=== PATIENT | female | born 1955 | race Caucasian/White ===

== ENCOUNTER 2024-01-18 13:23 | Emergency (ER) | payer MEDICARE, SELFPAY ==
[2024-01-18 13:25] VITALS: BP 161/73; PULSE 59; RESP 18; TEMP 36.4; O2SAT 100; BMI 26.9
--- NOTE | 2024-01-18 13:43 | EX.ED.UPPERE ---
HPI History of Present Illness Chief Complaint: Upper Extremity Injury Informant: patient Narrative Narrative: 68-year-old [id number] female states she tripped and fell 3 weeks ago injuring her left wrist; [place] she lost her footing while walking on the rocks falling onto left outstretched hand. She felt an acute zinger in the left wrist area. She was seen in urgent care and had x-rays that she states were negative. This is the first time she has seen somebody since then because she is having persistent pain and weakness in the left thumb. She states it is not numb, but it will not work and she is not limited by pain when it comes to moving it. She states she does still have wrist pain when she moves it but at rest it is not hurting. No other pain or injuries. No other areas or digits that will not work right. PFSH PFSH Allergy/AdvReac Type Severity Reaction Status Date / Time morphine Allergy Mild Other Verified 01/18/24 13:24 Social History Smoking Status: Unknown if ever smoked ROS ROS ED Constitutional Constitutional ED: Denies chills or fever(s) Musculoskeletal Musculoskeletal: Reports extremity pain; Denies neck pain Integumentary Denies Abrasions, rash or wounds Neurologic Neurologic: Reports weakness; Denies headache(s) or paresthesias EXAM Physical Exam Const Vital Signs: 01/18/24 13:25 Temperature 97.6 F L Temperature Source Temporal Pulse Rate 59 L Respiratory Rate 18 Blood Pressure 161/73 H Blood Pressure Mean 102 Pulse Ox 100 Oxygen Delivery Method Room Air Positive well nourished and well developed General Appearance ED: well developed and NAD Neck full ROM and supple Back/Spine normal ROM and normal to inspection Extremity Extremity Narrative: There is some swelling and bruising to the volar aspect of the left wrist. She has limited range of motion of the wrist due to pain. The distal radius and ulna are nontender, there is no other bony tenderness including the carpus and the metacarpals in the snuffbox. She has no pain with axial loading of the thumb. She is not able to move the thumb. Neuro oriented x3, no focal motor deficits and no sensory deficits noted Neuro Narrative: Not able to move the left thumb except for just barely able to lift it up. She cannot flex at the IPJ. There is no sign of injury to the thumb and it is nontender. She has normal sensation in the rest of her motor and sensory exam to the other digits is normal. Sensorium / Orientation: alert Psych mental status grossly normal and thought process normal Skin no wounds Rashes: no rashes MDM MDM MDM Narrative Medical decision making narrative: Three-view x-ray series of the left wrist on interpretation shows a nondisplaced distal radius metaphyseal fracture. I am not sure why she cannot move her thumb. She seems to think she is doing everything she can to move it and I will barely go. It is possible that the swelling is in the area of the digital nerves and causing a neuropraxia. I placed her in a splint and referred her to orthopedics. It would be unlikely that she lacerated the nerve especially since this was more of a delayed onset problem. For orthopedics patient requesting referral to [facility] local practice. Procedures Upper Extremity Splints Upper Extremity Splint: Orthoglass and - (Anterior posterior short arm wrist splint with thumb spica; neurovascularly intact distally afterwards.) Splint Fabrication: Fabricated Location: Left Discharge Plan Triage Chief Complaint: Upper Extremity Injury ED Provider: Clyde Ty Dx/Rx/DC Orders Clinical Impression: Closed traumatic nondisplaced fracture of distal end of left radius Instructions: ED Colles Fracture No Reduction ..., ED Splint Care, Fiberglass Stand Alone Forms: [facility] Referral Primary Care Provider: Deandre Villa Referrals: Clyde Banerjee MD [Non-Staff] - As soon as possible Deandre Villa MD [Primary Care Provider] - Print Language: Hungarian Disposition Disposition: Home, Self Care
--- NOTE | 2024-01-18 14:35 | RAD_ITS ---
STUDY: X-RAY - LEFT WRIST REASON FOR EXAM: Female, 68 years old. Injury TECHNIQUE: 3 view(s) of the wrist were obtained. COMPARISON: None. FINDINGS: There is a mildly impacted fracture of the distal radius with overlying soft tissue swelling. The remainder the visualized osseous structures are intact. There is no dislocation. There are no radiodense foreign bodies. RAD/Wrist min 3 Views IMPRESSION: Mildly impacted fracture of the left distal radius with overlying soft tissue swelling. Electronically Signed: Robert Ford MD at 15:05 EDT ,
== END 2024-01-18 15:03 | disposition home or self-care (01) ==
PROVIDERS: Emergency Provider Emergency Medicine; PCP Family Medicine; Visit Provider Emergency Medicine
DX: S52.502A Unspecified fracture of the lower end of left radius, initial encounter for closed fracture (principal); W19.XXXA Unspecified fall, initial encounter
CPT/HCPCS: 29125; 73110; 99282